=== PATIENT | female | born 1990 | race Hispanic/Latino ===

== ENCOUNTER 2021-07-01 08:23 | Outpatient (CLI) | payer OTHER ==
[2021-07-01] MEDS ORDERED: Iopamidol 370 76% 100 ML VIAL ONE (09:11)
== END 2021-07-01 08:24 | disposition home or self-care (01) ==
LOC: EEVIPCON 08:23 → CT 08:23
PROVIDERS: ATTEND Family Medicine
DX: R10.12 Left upper quadrant pain (principal)
CPT/HCPCS: 74177; Q9967

== ENCOUNTER 2021-10-22 12:12 | Outpatient (CLI) | payer OTHER | END 2021-10-22 12:13 | disposition home or self-care (01) | LOC: BICULT 12:12 | PROVIDERS: ATTEND Family Medicine | DX: R10.11 Right upper quadrant pain (principal); K76.0 Fatty (change of) liver, not elsewhere classified | CPT/HCPCS: 76700 ==